=== PATIENT | male | born 1990 | race Hispanic/Latino ===

== ENCOUNTER 2017-10-30 10:25 | Emergency (ER) | payer SELFPAY ==
--- NOTE | 2017-10-30 11:28 | EDPHYS ---
Physician Documentation [facility] Name: Nelson Espinoza Age: 27 yrs Sex: Male : 1990 Arrival Date: 10/30/2017 Time: 10:27 Bed 20 Private MD: ED Physician Rodney Jha HPI: 10/30 10:43 This 27 yrs old Male presents to ER via EMS with complaints of Hand Injury. kdr 10:43 The patient or guardian reports decreased range of motion, pain. kdr 10:45 Context: The problem was sustained at a The patient was trying to evade police while kdr wearing handcuffs. The cuffs caught in such a way that his left hand/wrist was flexed beyond normal limits. He now has pain in the left wrist and thenar eminence. Onset: The symptoms/episode began/occurred suddenly, just prior to arrival. Modifying factors: The symptoms are alleviated by nothing, holding still, the symptoms are aggravated by movement. Associated signs and symptoms: The patient has no apparent associated signs or symptoms. Severity of symptoms: At their worst the symptoms were moderate, in the emergency department the symptoms are unchanged. The patient has not experienced similar symptoms in the past. The patient has not recently seen a physician. Historical: - Allergies: 10:35 No Known Allergies; hb - Home Meds: 10:35 None [Active]; hb - PMHx: 10:35 None; hb - PSHx: 10:35 None; hb - Immunization history:: Adult Immunizations up to date. - Social history:: Smoking status: Patient/guardian denies using tobacco, Patient uses street drugs, marijuana. - Ebola Screening: : No symptoms or risks identified at this time. ROS: 10:45 Constitutional: Negative for fever, chills, and weight loss, Eyes: Negative for injury, kdr pain, redness, and discharge, Neck: Negative for injury, pain, and swelling, Cardiovascular: Negative for chest pain, palpitations, and edema, Respiratory: Negative for shortness of breath, cough, wheezing, and pleuritic chest pain, Abdomen/GI: Negative for abdominal pain, nausea, vomiting, diarrhea, and constipation, Back: Negative for injury and pain. 10:45 MS/extremity: Positive for decreased range of motion, paresthesias, swelling, tenderness, of the lateral aspect of left hand, dorsal aspect of distal phalanx of left thumb, dorsal aspect of proximal phalanx of left thumb, palmar aspect of proximal phalanx of left thumb and Left first web space, Negative for abrasion, ecchymosis, erythema, rash. Exam: 10:45 Constitutional: This is a well developed, well nourished patient who is awake, alert, kdr and in no acute distress. Head/Face: Normocephalic, atraumatic. 10:45 Musculoskeletal/extremity: Extremities: grossly normal except: noted in the lateral aspect of left hand, dorsal aspect of proximal phalanx of left thumb, palmar aspect of distal phalanx of left thumb, palmar aspect of proximal phalanx of left thumb and Left first web space: ROM: limited active range of motion, limited passive range of motion, Circulation is intact in all extremities. Sensation intact. Vital Signs: 10:35 BP 125 / 97; Pulse 103; Resp 16; Temp 98.3; Pulse Ox 100% on R/A; Weight 79.38 kg; hb Height 5 ft. 8 in. (172.72 cm); Pain 10/10; 11:30 BP 132 / 98; Pulse 90; Resp 15; Pulse Ox 100% on R/A; hb 10:35 Body Mass Index 26.61 (79.38 kg, 172.72 cm) hb MDM: 10:45 Data reviewed: vital signs, nurses notes, radiologic studies. Counseling: I had a kdr detailed discussion with the patient and/or guardian regarding: the historical points, exam findings, and any diagnostic results supporting the discharge/admit diagnosis. 11:28 Patient medically screened. kdr 10/30 10:47 Order name: Wrist Left 3 View; Complete Time: 13:36 EDOH 10/30 10:47 Order name: Hand Left 3 View; Complete Time: 13:36 EDOH 10/30 11:27 Order name: Thumb Spica Splint; Complete Time: 11:45 kdr Administered Medications: No medications were administered Disposition: 10/30/17 11:28 Discharged to Home. Impression: Sprain of other part of left wrist and hand. - Condition is Stable. - Discharge Instructions: Wrist Splint, [id number], Hand Contusion, [id number], Wrist Pain, Flik-kg-Sfae. - Prescriptions for Ibuprofen 800 mg Oral Tablet - take 1 tablet by ORAL route every 8 hours As needed take with food; 15 tablet. - Medication Reconciliation Form, Thank You Letter form. - Follow up: Khang Esteban MD; When: 2 - 3 days; Reason: If symptoms return, Further diagnostic work-up, Recheck today's complaints, Continuance of care, Re-evaluation by your physician. - Problem is new. - Symptoms have improved. Signatures: Dispatcher [employer] [facility] Rodney Jha MD MD [facility] Allison Ordonez RN RN Corrections: (The following items were deleted from the chart) 10:47 10:43 Wrist Right 3 View+RAD.RAD.BRZ ordered. EDOH EDMS 10:47 10:43 Hand Right 3 View+RAD.RAD.BRZ ordered. [facility] EDOH 11:56 11:28 10/30/2017 11:28 Discharged to Home. Impression: Sprain of other part of left hb wrist and hand. Condition is Stable. Forms are Medication Reconciliation Form, Thank You Letter, Antibiotic Education, Prescription Opioid Use. Follow up: Khang Esteban; When: 2 - 3 days; Reason: If symptoms return, Further diagnostic work-up, Recheck today's complaints, Continuance of care, Re-evaluation by your physician. Problem is new. Symptoms have improved. kdr
--- NOTE | 2017-10-30 11:28 | ER ---
Nurse's Notes [facility] Name: Nelson Espinoza Age: 27 yrs Sex: Male : 1990 Arrival Date: 10/30/2017 Time: 10:27 Bed 20 Private MD: Diagnosis: Sprain of other part of left wrist and hand Presentation: 10/30 10:29 Presenting complaint: EMS states: Ran from police while handcuffed with hands behind hb back, c/o left hand pain after being subdued on ground by officers. Transition of care: patient was not received from another setting of care. Onset of symptoms was October 30, 2017. Risk Assessment: Do you want to hurt yourself or someone else? Patient reports no desire to harm self or others. Initial Sepsis Screen: Does the patient meet any 2 criteria? No. Patient's initial sepsis screen is negative. Does the patient have a suspected source of infection? No. Patient's initial sepsis screen is negative. Care prior to arrival: Ice pack applied to injury. 10:29 Method Of Arrival: EMS: [facility] 10:29 Acuity: MALIHA 4 hb Historical: - Allergies: 10:35 No Known Allergies; hb - Home Meds: 10:35 None [Active]; hb - PMHx: 10:35 None; hb - PSHx: 10:35 None; hb - Immunization history:: Adult Immunizations up to date. - Social history:: Smoking status: Patient/guardian denies using tobacco, Patient uses street drugs, marijuana. - Ebola Screening: : No symptoms or risks identified at this time. Screenin:35 Abuse screen: Denies threats or abuse. Denies injuries from another. Nutritional hb screening: No deficits noted. Tuberculosis screening: No symptoms or risk factors identified. Fall Risk None identified. Assessment: 10:35 General: Appears in no apparent distress. uncomfortable, Behavior is calm, cooperative. hb Pain: Pain currently is 10 out of 10 on a pain scale. Neuro: Level of Consciousness is awake, alert, obeys commands, Oriented to person, place, time, situation. Cardiovascular: Capillary refill < 3 seconds Patient's skin is warm and dry. Respiratory: Airway is patent Trachea midline Respiratory effort is even, unlabored, Respiratory pattern is regular, symmetrical. Musculoskeletal: Range of motion: limited in left hand. 11:30 Reassessment: Patient appears in no apparent distress at this time. No changes from hb previously documented assessment. Patient and/or family updated on plan of care and expected duration. Pain level reassessed. Patient is alert, oriented x 3, equal unlabored respirations, skin warm/dry/pink. Vital Signs: 10:35 BP 125 / 97; Pulse 103; Resp 16; Temp 98.3; Pulse Ox 100% on R/A; Weight 79.38 kg; hb Height 5 ft. 8 in. (172.72 cm); Pain 10/10; 11:30 BP 132 / 98; Pulse 90; Resp 15; Pulse Ox 100% on R/A; hb 10:35 Body Mass Index 26.61 (79.38 kg, 172.72 cm) hb ED Course: 10:27 Patient arrived in ED. hb 10:28 Rodney Jha MD is Attending Physician. kdr 10:34 Triage completed. hb 10:35 Patient has correct armband on for positive identification. Bed in low position. Call hb light in reach. Side rails up X 1. police officers at bedside. 10:37 Arm band placed on left wrist. hb 11:09 Allison Ordonez, RN is Primary Nurse. hb 11:16 X-ray completed. Portable x-ray completed in exam room. Patient tolerated procedure ml well. 11:18 Wrist Left 3 View In Process Unspecified. EDMS 11:18 Hand Left 3 View In Process Unspecified. EDMS 11:27 Khang Esteban MD is Referral Physician. kdr 11:46 Orthoglass splint: Thumb spica splint applied on left forearm. hb 11:47 No provider procedures requiring assistance completed. Patient did not have IV access hb during this emergency room visit. Administered Medications: No medications were administered Outcome: 11:28 Discharge ordered by . kdr 11:47 Discharged to Law Enforcement hb 11:47 Condition: stable 11:47 Discharge instructions given to patient, Instructed on discharge instructions, follow up and referral plans. medication usage, wound care, Demonstrated understanding of instructions, follow-up care, medications, splint care, Prescriptions given X 1. 11:56 Patient left the ED. hb Signatures: Dispatcher [employer] EDMS Rodney Jha MD MD kdr Lopez, Melissa ml Baxter, Heather, RN RN hb
--- NOTE | 2017-10-30 11:50 | RAD REPORT ---
EXAM DESCRIPTION: RAD - Hand Left 3 View - 10/30/2017 11:18 am CLINICAL HISTORY: Hand pain, left thumb pain following trauma COMPARISON: None. FINDINGS: No fracture, dislocation or periosteal reaction noted. No foreign body or other soft tissu e abnormality. IMPRESSION: Negative left hand examination.
--- NOTE | 2017-10-30 11:51 | RAD REPORT ---
EXAM DESCRIPTION: RAD - Wrist Left 3 View - 10/30/2017 11:18 am CLINICAL HISTORY: Left wrist and thumb pain following trauma COMPARISON: None. FINDINGS: No fracture is identified. There is no dislocation or periosteal reaction noted. No foreig n body or other soft tissue abnormality. IMPRESSION: Negative left wrist examination.
== END 2017-10-30 11:56 | disposition home or self-care (01) ==
LOC: ER 10:25
DX: S63.592A Other specified sprain of left wrist, initial encounter (principal); X58.XXXA Exposure to other specified factors, initial encounter; Y93.89 Activity, other specified; Y92.410 Unspecified street and highway as the place of occurrence of the external cause
CPT/HCPCS: 99284